=== PATIENT | female | born 1995 | race Caucasian/White ===

== ENCOUNTER 2023-07-15 05:21 | Inpatient (IN) | payer OTHER, SELFPAY ==
[2023-07-15] VITALS (11 sets, daily range): BP systolic 110–120; BP diastolic 58–74; PULSE 70–93; RESP 16; TEMP 36.3–36.4
[2023-07-15 05:58] LABS: Hematocrit 38.3 % (36.0-48.0); Mean Corpuscular HGB Conc 33.9 g/dL (29.9-35.2); Mean Corpuscular Volume 94.3 fL (81.0-99.0); Mean Platelet Volume 10.6 fL (9.5-13.5); Platelet Count 183 10^3/uL (150-450); Red Blood Count 4.06 10^6/uL (4.20-5.40); Red Cell Distribution Width 13.7 % (11.0-15.0); White Blood Count 12.7 10^3/uL (4.0-11.0)
[2023-07-15 06:14] LABS: Amphetamine Screen Urine NEGATIVE (NEGATIVE); Cannabinoid Screen Urine NEGATIVE (NEGATIVE); Cocaine Screen Urine NEGATIVE (NEGATIVE); Methamphetamines Screen Urine NEGATIVE (NEGATIVE); Opiate Screen Urine NEGATIVE (NEGATIVE); Phencyclidine Screen Urine NEGATIVE (NEGATIVE)
[2023-07-15 06:15] LABS: Barbiturates Screen Urine NEGATIVE (NEGATIVE); Benzodiazepines Screen Urine NEGATIVE (NEGATIVE); Buprenorphine Screen Urine NEGATIVE (NEGATIVE); Methadone Screen Urine NEGATIVE (NEGATIVE); Oxycodone Screen Urine NEGATIVE (NEGATIVE); Tricyclic Antidepressant Urine NEGATIVE (NEGATIVE)
[2023-07-15] MEDS: 0.9 % SODIUM CHLORIDE 1,000 ML 125 ML IV (06:30)
[2023-07-15] MEDS: OXYTOCIN/0.9 % SODIUM CHLORIDE 10 UNITS/500 ML PLAST..BAG 6 UNIT IV (06:30)
--- NOTE | 2023-07-15 07:10 | W.PC.ACHO ---
Registration Status: ADM IN Primary Language: Pakistani Preferred Language: Pakistani Active Medications 0705- Report given to Yonathan Ram RN Generic Name Dose Route Start Last Admin Trade Name Josiane PRN Reason Stop Dose Admin Carboprost Tromethamine 250 mcg 07/15/23 05:26 Carboprost Tromethamine 250 Mcg/Ml 1 Ml Vial IM Q15M PRN Bleeding Sodium Chloride 1,000 mls @ 125 mls/hr 07/15/23 05:30 07/15/23 06:30 Sodium Chloride 0.9% 1,000 Ml IV 125 mls/hr .Q8H UMAIR Administration Oxytocin/Sodium Chloride 10 units in 500 mls @ 6 mls/hr 07/15/23 05:30 07/15/23 06:30 Pitocin 10 Unit/500 Ml-Ns IV 2 milliunit/min Q24H UMAIR 6 mls/hr Administration Protocol 2 MILLIUNIT/MIN Oxytocin/Sodium Chloride 20 units in 1,000 mls @ 125 mls/hr 07/15/23 05:26 Pitocin 20 Unit/1,000 Ml-Ns IV 07/15/23 13:25 ONCE ONE Protocol Lidocaine 5 ml 07/15/23 05:26 Lidocaine Viscous 2% 15 Ml Topical Solution TOPICAL .PRN PRN Pain Lidocaine 1 ml 07/15/23 05:26 Lidocaine Hcl 1% 200 Mg/20 Ml Mdv INJ .PRN PRN Pain Methylergonovine Maleate 0.2 mg 07/15/23 05:26 Methylergonovine Maleate 0.2 Mg Tablet PO Q4H PRN Uterine Contractility/Contract Methylergonovine Maleate 0.2 mg 07/15/23 05:26 Methylergonovine Maleate 0.2 Mg/Ml Ampule IM ONCE PRN Uterine Contractility/Contract Misoprostol 600 mcg 07/15/23 05:26 Misoprostol 100 Mcg Tablet PO ONCE PRN Uterine Bleeding Misoprostol 800 mcg 07/15/23 05:26 Misoprostol 100 Mcg Tablet SL ONCE PRN Uterine Bleeding Misoprostol 1,000 mcg 07/15/23 05:26 Misoprostol 100 Mcg Tablet DE ONCE PRN Uterine Bleeding Ondansetron HCl 4 mg 07/15/23 05:26 Ondansetron Pf 4 Mg/2 Ml Vial IV Q6H PRN Nausea And Vomiting Ondansetron HCl 4 mg 07/15/23 05:26 Ondansetron 4 Mg Rapdis Tablet SL Q6H PRN Nausea And Vomiting Oxytocin 10 unit 07/15/23 05:26 Oxytocin 10 Unit/Ml Vial IM ONCE PRN Hemorrhage Diet Category Date Time Status Regular Consistency Diet Diet 07/15/23 Breakfast Active IV Insertion/Site Date of IV Line Insertion [20g 07/15/23 left Hand] IV Insertion Time [20g left 05:45 Hand] Neurology Patient orientation (short person,place,time,situation list) Respiratory Oxygen Delivery Method Room Air
--- NOTE | 2023-07-15 13:12 | PM.OBPRCVD ---
Procedure Intrapartal events: None Induction method: per misoprostol protocol Delivery augmentation: rupture of membranes and pitocin Delivery monitor: external FHT and external uterine Route of delivery: Episiotomy Description: none Laceration description: perineal - 1st degree Delivery repair: Vicryl Estimated blood loss (mL): 200 Anesthesia type: None Disposition: floor Infant Delivery date: 07/15/23 Gender: male presentation: vertex Placental delivery description: Spontaneous cord description: 3 Vessels
--- NOTE | 2023-07-15 15:00 | PC.NURSE ---
infant at breast. Rubra minimal, pt denies pain or needs. Ice pack cont to perineum as requested
--- NOTE | 2023-07-15 15:04 | PC.NURSE ---
pt assessment combined with infants to allow for bonding time. Pt reports no pain and minimal rubra
--- NOTE | 2023-07-15 16:15 | PC.NURSE ---
assisted up to BR, yoselyn reviewed, verbalizes understanding and performed per self. Bed linens changed and comfort mattress applied. Denies pain. Pt request IV out.. IV out bandaid to site. visitors in
[2023-07-15] MEDS: IBUPROFEN 600 MG TABLET PO (19:57)
[2023-07-16 03:36] VITALS: RESP 18; TEMP 36.6
[2023-07-16 03:37] VITALS: BP 98/50; PULSE 68
[2023-07-16 05:15] LABS: Basophils Absolute Auto 0.1 10^3/uL (0.0-0.1); Basophils Percent Auto 0.4 % (0.2-2.0); Eosinophils Absolute Auto 0.3 10^3/uL (0.0-0.7); Eosinophils Percent Auto 2.4 % (0.9-7.0); Hematocrit 34.1 % (36.0-48.0); Hemoglobin 11.3 g/dL (12.0-16.0); Immature Granulocytes Abs Auto 0.09 10^3/uL (0.00-0.03); Immature Granulocytes Pct Auto 0.7 % (0.0-0.5); Lymphocytes Absolute Auto 2.9 10^3/uL (1.2-3.8); Lymphocytes Percent Auto 21.1 % (20.5-60.0); Mean Corpuscular HGB Conc 33.1 g/dL (29.9-35.2); Mean Corpuscular Volume 96.6 fL (81.0-99.0); Mean Platelet Volume 10.4 fL (9.5-13.5); Monocytes Absolute Auto 0.8 10^3/uL (0.3-0.8); Monocytes Percent Auto 5.5 % (1.7-12.0); Neutrophils Absolute Auto 9.5 10^3/uL (1.4-6.5); Neutrophils Percent Auto 69.9 % (43.0-75.0); Platelet Count 144 10^3/uL (150-450); Red Blood Count 3.53 10^6/uL (4.20-5.40); Red Cell Distribution Width 13.9 % (11.0-15.0); White Blood Count 13.6 10^3/uL (4.0-11.0)
--- NOTE | 2023-07-16 06:12 | W.PC.ACHO ---
Registration Status: ADM IN Primary Language: Cook Islander Preferred Language: [place] Islander Active Medications Generic Name Dose Route Start Last Admin Trade Name Freq PRN Reason Stop Dose Admin Acetaminophen 650 mg 07/15/23 13:14 Acetaminophen 325 Mg Tablet PO Q6H PRN Mild Pain Al Hydroxide/Mg Hydroxide 2,400 mg 07/15/23 13:14 Magnesium Hydroxide 2,400 Mg/10 Ml Oral.Susp PO Q6H PRN Dyspepsia Benzocaine/Menthol 1 applic 07/15/23 13:14 Benzocaine/Menthol 85 Gram Bottle TOPICAL Q2H PRN Pain Carboprost Tromethamine 250 mcg 07/15/23 05:26 Carboprost Tromethamine 250 Mcg/Ml 1 Ml Vial IM 07/16/23 13:00 Q15M PRN Bleeding Diphtheria/Pertussis/Tetanus Vacc 0.5 ml 07/17/23 09:00 Adacel Diph,Pertuss(Acell),Tet Vac/Pf 0.5 Ml Adult Syringe IM 07/17/23 09:01 .ONCE ONE Docusate Sodium 100 mg 07/16/23 09:00 Docusate Sodium 100 Mg Capsule PO BID UMAIR Sodium Chloride 1,000 mls @ 125 mls/hr 07/15/23 05:30 07/15/23 06:30 Sodium Chloride 0.9% 1,000 Ml IV 125 mls/hr .Q8H UMAIR Administration Oxytocin/Sodium Chloride 20 units in 1,000 mls @ 125 mls/hr 07/15/23 07:33 Pitocin 20 Unit/1,000 Ml-Ns IV ONCE PRN POST DELIVERY BLEEDING Protocol Ibuprofen 600 mg 07/15/23 13:14 07/15/23 19:57 Ibuprofen 600 Mg Tablet PO 600 mg Q6H PRN Administration Moderate Pain Lidocaine 1 ml 07/15/23 13:00 Lidocaine Hcl 1% 200 Mg/20 Ml Mdv INJ ONCE PRN Pain Measles/Mumps/Rubella Vaccine Live 0.5 ml 07/17/23 09:00 Measles,Mumps,Rubella Vacc/Pf 0.5 Ml Vial SQ 07/17/23 09:01 .ONCE ONE Methylergonovine Maleate 0.2 mg 07/15/23 05:26 Methylergonovine Maleate 0.2 Mg Tablet PO 07/16/23 13:00 Q4H PRN Uterine Contractility/Contract Methylergonovine Maleate 0.2 mg 07/15/23 05:26 Methylergonovine Maleate 0.2 Mg/Ml Ampule IM 07/16/23 13:00 ONCE PRN Uterine Contractility/Contract Misoprostol 600 mcg 07/15/23 05:26 Misoprostol 100 Mcg Tablet PO 07/16/23 13:00 ONCE PRN Uterine Bleeding Misoprostol 800 mcg 07/15/23 05:26 Misoprostol 100 Mcg Tablet SL 07/16/23 13:00 ONCE PRN Uterine Bleeding Misoprostol 1,000 mcg 07/15/23 05:26 Misoprostol 100 Mcg Tablet NH 07/16/23 13:00 ONCE PRN Uterine Bleeding Ondansetron HCl 4 mg 07/15/23 05:26 Ondansetron Pf 4 Mg/2 Ml Vial IV Q6H PRN Nausea And Vomiting Ondansetron HCl 4 mg 07/15/23 05:26 Ondansetron 4 Mg Rapdis Tablet SL Q6H PRN Nausea And Vomiting Oxytocin 10 unit 07/15/23 05:26 Oxytocin 10 Unit/Ml Vial IM ONCE PRN Hemorrhage Senna 17.2 mg 07/15/23 20:00 Sennosides 8.6 Mg Tablet PO QHS PRN Constipation Simethicone 80 mg 07/15/23 13:14 Simethicone 80 Mg Tab.Chew PO QID PRN Abdominal Distention Temazepam 15 mg 07/15/23 13:14 Temazepam 15 Mg Capsule PO QHS PRN Sleep Witch Aracely/Glycerin 1 pad 07/15/23 13:14 Glycerin/Witch Aracely Pads TOPICAL Q2H PRN Pain Diet Category Date Time Status Regular Consistency Diet Diet 07/15/23 Dinner Active Respiratory Lung sounds [Throughout] clear Lung sounds [Throughout] clear Oxygen Delivery Method Room Air Oxygen Delivery Method Room Air Cardiology Heart Sounds Regular Heart Sounds Regular Renal Bladder Pattern Continent Bladder Pattern Continent
[2023-07-16 08:09] VITALS: BP 119/62; PULSE 79
[2023-07-16 08:14] VITALS: RESP 16; TEMP 37.1
[2023-07-16] MEDS: DOCUSATE SODIUM 100 MG CAPSULE PO (08:37)
[2023-07-16] MEDS: IBUPROFEN 600 MG TABLET PO (08:37)
--- NOTE | 2023-07-16 12:42 | PC.NURSE ---
LC in room to answers questions. Experienced BF mom. States think he is tongue tied relates that 1st child was tongue tied also. Open to revision as needed. LC suspects tongue tie after oral examination of infant mouth and ability to suck. Given referral for pediatric dentist for further evaluation and care of same. Parents will call for follow up as needed after seen by dentist.
--- NOTE | 2023-07-16 12:57 | PM.OBPN ---
OB - PN: Subj Subjective Patient comments: no complaints [place] infant status: doing well Exam Constitutional Vital Signs, click to edit/add: Last Vital Signs Temp 98.8 F 07/16/23 08:14 Pulse 79 07/16/23 08:09 Resp 16 07/16/23 08:14 BP 119/62 07/16/23 08:09 O2 Del Method Room Air 07/16/23 03:36 Documenting provider has reviewed patient's vital signs: yes Common normals: no apparent distress Respiratory Common normals: normal respiratory effort and clear to auscultation bilaterally Cardio Common normals: regular rate and regular rhythm GI Common normals: Normal to inspection, nondistended, normoactive bowel sounds present Common normals: no CVA tenderness Extremity Common normals: no clubbing, cyanosis or edema and no calf tenderness Results Labs Labs: Short CBC 07/16/23 Range/Units 04:52 WBC 13.6 H (4.0-11.0) 10^3/uL Hgb 11.3 L (12.0-16.0) g/dL Hct 34.1 L (36.0-48.0) % Plt Count 144 L (150-450) 10^3/uL OB - PN: A/P Plan - Vaginal Delivery day: 1 Plan: routine care, discharge home and follow up 6 weeks Time Spent with Patient Time: Total time spent is greater than 50% in coordination of care (as documented) at patient's floor/unit and/or counseling patient: Total time spent with greater than 50% in coordination of care (as documented) at patient's floor/unit and/or counseling patient: less than 15 minutes
== END 2023-07-16 16:11 | disposition home or self-care (01) | DRG 807 ==
PROVIDERS: Admitting Provider Obstetrics & Gynecology; Visit Provider Obstetrics & Gynecology
DX: O48.0 Post-term pregnancy (principal); Z37.0 Single live birth; Z3A.40 40 weeks gestation of pregnancy; O70.0 First degree perineal laceration during delivery
CPT/HCPCS: 36415; 59410; 80307; 85025; 85027; 86850; 86900; 86901; 96365; 96366; 96376

== ENCOUNTER 2024-01-25 20:37 | Outpatient (REF) | payer OTHER, SELFPAY ==
[2024-01-29 15:08] LABS: Age Gdln ACOG Testing Note (.); HPV Aptima Negative (Negative); IGP, Aptima HPV, rfx 16/18,45 Note (.)
== END 2024-01-25 20:38 | disposition home or self-care (01) ==
LOC: LAB 20:37
PROVIDERS: Visit Provider Obstetrics & Gynecology
DX: Z01.419 Encounter for gynecological examination (general) (routine) without abnormal findings (principal)
CPT/HCPCS: 87624; G0145